=== PATIENT | male | born 1985 | race Caucasian/White ===

== ENCOUNTER 2019-05-10 09:55 | Emergency (ER) | payer OTHER ==
--- NOTE | 2019-05-10 13:05 | UC ---
Throat Pain/Nasal Kleber HPI - HPI Summary HPI Summary: 33-year-old male presenting with sore throat, nasal congestion, chills, and body aches 5 days. Patient states fever onset of symptoms 5 days ago and none since. Notes minimal cough. Denies shortness breath and wheezing. Denies nausea and vomiting. States he took DayQuil on the first day but discontinued medication. Denies improvement. States concern for strep throat. - History of Current Complaint Chief Complaint: UCGeneralIllness Stated Complaint: SORE THROAT Hx Obtained From: Patient Pain Intensity: 2 Pain Scale Used: 0-10 Numeric - Allergies/Home Medications Allergies/Adverse Reactions: Allergies Allergy/AdvReac Type Severity Reaction Status Date / Time amoxicillin Allergy s Verified 05/10/19 10:26 cephalexin [From Keflex] Allergy michel Verified 05/10/19 10:25 jeramy sydrome erythromycin base Allergy sjd Verified 05/10/19 10:26 Home Medications: Home Medications NK [No Home Medications Reported] 05/10/19 [History Confirmed 05/10/19] PMH/Surg Hx/FS Hx/Imm Hx Previously Healthy: Yes - Surgical History Surgical History: None - Social History Alcohol Use: Occasionally Substance Use Type: None Smoking Status (MU): Never Smoked Tobacco Review of Systems All Other Systems Reviewed And Are Negative: Yes Constitutional: Positive: Fever, Chills ENT: Positive: Sore Throat, Nasal Discharge, Sinus Congestion Respiratory: Positive: Cough. Negative: Shortness Of Breath Cardiovascular: Positive: Negative Gastrointestinal: Positive: Negative Musculoskeletal: Positive: Negative Neurological/Mental Status: Positive: Negative Physical Exam Triage Information Reviewed: Yes Appearance: No Pain Distress, Well-Nourished, Ill-Appearing Vital Signs: Initial Vital Signs Temp 98.1 F 05/10/19 10:22 Pulse 70 05/10/19 10:22 Resp 16 05/10/19 10:22 BP 122/76 05/10/19 10:22 Pulse Ox 100 05/10/19 10:22 Lab Results 05/10/19 05/10/19 Range/Units 13:08 13:11 Influenza A (Rapid) Negative (Negative) Influenza B (Rapid) Negative (Negative) Group A Strep Rapid Negative (Negative) Eyes: Positive: Conjunctiva Clear ENT: Positive: Hearing grossly normal, Pharyngeal erythema, Nasal congestion, Nasal drainage, TMs normal, Uvula midline. Negative: Tonsillar swelling, Tonsillar exudate, Sinus tenderness Neck exam: Normal Neck: Positive: Supple, Nontender, No Lymphadenopathy Respiratory Exam: Normal Respiratory: Positive: Lungs clear, Normal breath sounds, No respiratory distress, No accessory muscle use Cardiovascular Exam: Normal Cardiovascular: Positive: RRR Neurological: Positive: Alert Psychological: Positive: Age Appropriate Behavior Skin Exam: Normal Throat Pain/Nasal Course/Dx - Course Course Of Treatment: Negative rapid strep and flu. I discussed viral illness with patient and instructed to continue with symptomatic treatment. Instructed to follow up with pcp if symptoms persist or worsen. Patient voiced understanding and agreed with treatment plan. - Differential Dx/Diagnosis Differential Diagnosis/HQI/PQRI: Influenza, Pharyngitis, Sinusitis, URI Provider Diagnosis: Viral URI Discharge ED - Sign-Out/Discharge Documenting (check all that apply): Patient Departure All imaging exams completed and their final reports reviewed: No Studies - Discharge Plan Condition: Stable Disposition: HOME Patient Education Materials: Upper Respiratory Infection (ED) Referrals: Bandar Martinez MD [Primary Care Provider] - If Needed Additional Instructions: You may continue to take over the counter cold medications or decongestant for your cold symptoms. You may use nasal saline spray or Flonase for symptomatic relief. Take ibuprofen or tylenol as directed for pain relief. Get plenty of rest and fluids. Follow up with your primary care provider if your symptoms worsen or do not improve within 7-10 days. - Billing Disposition and Condition Condition: STABLE Disposition: Home
[2019-05-10 13:22] LABS: Influenza A Molecular Negative (Negative); Influenza B Molecular Negative (Negative)
== END 2019-05-10 13:46 | disposition home or self-care (01) ==
LOC: UCEAST 09:55
DX: J06.9 Acute upper respiratory infection, unspecified (principal); Z88.0 Allergy status to penicillin; Z88.1 Allergy status to other antibiotic agents
CPT/HCPCS: 87651; 99201; G0463